=== PATIENT | male | born 1990 | race African-American/Black ===

== ENCOUNTER 2022-09-15 10:36 | Emergency (ER) | payer BC, SELFPAY ==
[2022-09-15 10:42] VITALS: BP 127/70; PULSE 88; RESP 16; TEMP 36.9; O2SAT 100; BMI 25.7
[2022-09-15] MEDS: ONDANSETRON 4 MG ODT PO (10:49)
[2022-09-15 11:53] LABS: Ictotest Urine Negative (Negative)
[2022-09-15 11:54] LABS: Squamous Epithelial Cell Urine 1-5 /HPF (0-5/HPF); WBC Urine 5-10/HPF (0-5/HPF)
[2022-09-15 11:55] LABS: Bacteria Urine None Seen; Culture Indicated Urine Specimen Cultured; RBC Urine None Seen (0-5/HPF)
[2022-09-15 12:59] VITALS: BP 125/89
[2022-09-15 13:03] VITALS: BP 145/82; RESP 20; O2SAT 100
--- NOTE | 2022-09-22 13:59 | ED.NAVMDI ---
HPI - Nausea/Vomiting/Diarrhea <Amna Worley PA-C - Last Filed: 09/22/22 14:06> General Chief complaint: Nausea/Vomiting/Diarrhea Stated complaint: chills/fever/body aches/headache/chest hurts Time Seen by Provider: 09/15/22 12:17 Source: patient Mode of arrival: Ambulatory History of Present Illness HPI Narrative: 31-year-old male with no reported past medical history presents to the ED with 2 days of fever, chills, nausea, vomiting, diarrhea, body aches. 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 Patient is also complaining of a foot rash. Patient denies chest pain, shortness of breath, abdominal pain, dysuria, lightheadedness, dizziness, syncope. Related Data Previous Rx's Medication Instructions Recorded ciprofloxacin HCl 500 mg tablet 500 mg PO Q12H 10 days #20 tabs 09/15/22 ondansetron 4 mg disintegrating 4 mg PO Q8H PRN nausea and 09/15/22 tablet vomiting #20 tabs terbinafine HCl 1 % topical cream 1 applic topical BID 3 weeks #30 09/15/22 grams Allergies Allergy/AdvReac Type Severity Reaction Status Date / Time aspirin Allergy Severe Anaphylaxis Verified 09/15/22 10:46 Penicillins Allergy Severe Anaphylaxis Verified 09/15/22 10:46 Review of Systems <Amna Worley PA-C - Last Filed: 09/22/22 14:06> Review of Systems ROS Unobtainable: All systems reviewed & are unremarkable except as noted in HPI and below Constitutional Constitutional: Reports chills, Reports fatigue, Reports fever(s), Denies frequent falls, Denies lethargy and Denies weakness Eyes Eyes: Denies change in vision, Denies eye discharge, Denies irritation and Denies loss of vision ENT Ears, Nose, Mouth, and Throat: Denies change in voice, Denies dizziness, Denies neck pain, Denies sore throat and Denies throat swelling Cardiovascular Cardiovascular: Denies chest pain, Denies irregular heart rhythm, Denies lightheadedness, Denies palpitations, Denies dyspnea, Denies dyspnea on exertion and Denies orthopnea Respiratory Respiratory: Denies cough, Denies dyspnea, Denies dyspnea on exertion and Denies wheezing Gastrointestinal Gastrointestinal: Denies abdominal pain, Denies change in bowel habits, Reports diarrhea, Reports nausea and Reports vomiting Genitourinary Genitourinary: Denies hematuria, Denies flank pain, Denies urinary incontinence and Denies urinary urgency Musculoskeletal Musculoskeletal: Denies back pain, Denies muscle weakness, Denies neck pain, Denies numbness and Denies tingling Integumentary/Breasts Skin/Breast: Denies pruritus, Denies erythema, Reports rash and Denies wounds Neurologic Neurologic: Denies behavioral changes, Denies confusion, Denies dizziness, Denies frequent falls, Denies loss of vision, Denies numbness, Denies tingling and Denies weakness Psychiatric Psychiatric: Denies anxiety, Denies behavioral changes, Denies confusion, Denies depression, Denies homicidal ideation and Denies suicidal ideation Endocrine Endocrine: Reports fatigue, Denies flushing and Denies palpitations Hematologic/Lymphatic Hematologic/Lymphatic: Denies easy bruising Allergic/Immunologic Allergic/Immunologic: Denies urticaria, Denies throat swelling and Denies wheezing Patient History <Amna Worley PA-C - Last Filed: 09/22/22 14:06> Social History Smoking Status: Current every day smoker Smoking Status: Current every day smoker alcohol intake frequency: 0-2 drinks per day Substance Use Type: marijuana Exam <Amna Worley PA-C - Last Filed: 09/22/22 14:06> Narrative Exam Narrative: Const General:?cooperative, healthy appearing and comfortable [facility] Head:?normal to inspection Ears:?hearing grossly normal bilaterally Nose:?external nose normal Face and sinus:?normal facial exam and sinuses nontender Mouth:?oral mucosae normal Throat:?posterior oropharynx normal Eyes General:?appearance normal, both eyes and all related structures Neck Neck:?normal visual inspection and no lymphadenopathy noted Resp Effort & Inspection:?normal respiratory effort Auscultation:?clear to auscultation bilaterally Cardio Rate:?regular rate Rhythm:?regular rhythm GI Abdomen is soft, nondistended, nontender to palpation. No CVA tenderness. Integumentary Dry, scaly rash on and in between bilateral toes, most consistent with a fungal infection. Neuro General:?patient alert, patient awake and patient oriented x3 Initial Vital Signs Initial Vital Signs: Vital Signs Temperature 98.5 F 09/15/22 10:42 Pulse Rate 88 09/15/22 10:42 Respiratory Rate 16 09/15/22 10:42 Blood Pressure 127/70 09/15/22 10:42 Pulse Oximetry 100 09/15/22 10:42 Oxygen Delivery Method Room Air 09/15/22 10:42 <Remy Garcia DO - Last Filed: 09/22/22 18:10> Initial Vital Signs Initial Vital Signs: Vital Signs Temperature 98.5 F 09/15/22 10:42 Pulse Rate 88 09/15/22 10:42 Respiratory Rate 16 09/15/22 10:42 Blood Pressure 127/70 09/15/22 10:42 Pulse Oximetry 100 09/15/22 10:42 Oxygen Delivery Method Room Air 09/15/22 10:42 Course <Amna Worley PA-C - Last Filed: 09/22/22 14:06> Orders Ordered: Discontinued Medications Ondansetron HCl (Ondansetron 4 Mg Odt) 4 mg PO NOW ONE Stop: 09/15/22 10:48 Last Admin: 09/15/22 10:49 Dose: 4 mg Documented By: TALIA <Remy Garcia DO - Last Filed: 09/22/22 18:10> Orders Ordered: Discontinued Medications Ondansetron HCl (Ondansetron 4 Mg Odt) 4 mg PO NOW ONE Stop: 09/15/22 10:48 Last Admin: 09/15/22 10:49 Dose: 4 mg Documented By: TALIA [facility] - Nausea/Vomiting/Diarrhea <Amna Worley PA-C - Last Filed: 09/22/22 14:06> Lab Data Labs: Lab Results 09/15/22 Range/Units 11:18 Ur Bilirubin Confirm Negative (Negative) Urine RBC None seen (0-5/HPF) Urine WBC 5-10/hpf H (0-5/HPF) Ur Squamous Epith Cells 1-5 /hpf (0-5/HPF) Urine Bacteria None seen (None) Ur Culture Indicated? Specimen cultured Urine Dip Bedside Urine Glucose Negative Bedside Urine Bilirubin ++ 2 Bedside Urine Ketone - Negative Urine Specific [place] 1.025 Bedside Urine Occult Blood - Negative Bedside Urine pH 6.0 Bedside Urine Protein +/- 15 Bedside Urine Urobilinogen - Negative Bedside Urine Nitrite - Negative Bedside Urine Leukocytes + 70 Esterase MDM Narrative Medical decision making narrative: 31-year-old male with no reported past medical history presents to the ED with 2 days of fever, chills, nausea, vomiting, diarrhea, body aches. Concern for gastroenteritis versus UTI versus viral infection versus fungal infection. UA was positive for UTI. Patient's symptoms likely due to pyelonephritis and also possibly gastroenteritis. Foot rash consistent with a fungal infection. Prescribed antibiotics, Zofran, terbinafine. 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 ED return precautions were discussed with patient. Patient verbalized understanding. <Remy Garcia, - Last Filed: 09/22/22 18:10> Lab Data Labs: Lab Results 09/15/22 Range/Units 11:18 Ur Bilirubin Confirm Negative (Negative) Urine RBC None seen (0-5/HPF) Urine WBC 5-10/hpf H (0-5/HPF) Ur Squamous Epith Cells 1-5 /hpf (0-5/HPF) Urine Bacteria None seen (None) Ur Culture Indicated? Specimen cultured Urine Dip Bedside Urine Glucose Negative Bedside Urine Bilirubin ++ 2 Bedside Urine Ketone - Negative Urine Specific [place] 1.025 Bedside Urine Occult Blood - Negative Bedside Urine pH 6.0 Bedside Urine Protein +/- 15 Bedside Urine Urobilinogen - Negative Bedside Urine Nitrite - Negative Bedside Urine Leukocytes + 70 Esterase Discharge Plan Departure Patient Disposition: Home Clinical Impression: Gastroenteritis, Pyelonephritis Instructions: DI for Kidney Infection, DI for Bacterial Gastroenteritis -- Adult Activity Restrictions/Additional Instructions: You were evaluated in the ED for fever, chills, vomiting. You tested positive for a urinary tract infection today for which you are being prescribed antibiotics. You also likely have gastroenteritis, which is food poisoning that can also cause similar symptoms. You may take Zofran for the vomiting. You can take Tylenol, ibuprofen for fevers and body aches. Please complete your full course of antibiotics. 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 Please return to the ED if you are persistently vomiting, your symptoms worsen. Prescriptions: New ciprofloxacin HCl 500 mg tablet 500 mg PO Q12H 10 Days Qty: 20 0RF terbinafine HCl 1 % cream 1 applic topical BID 21 Days Qty: 30 0RF ondansetron 4 mg tablet,disintegrating 4 mg PO Q8H PRN (Reason: nausea and vomiting) Qty: 20 0RF Referrals: Miscellaneous,Doctor, MD [Primary Care Provider] - Stand Alone Forms: Patient Portal/API, Work Release Note <Remy Garcia, - Last Filed: 09/22/22 18:10> Cosign ED Attending Cosignature Attestation: Dr Garcia Co-Sign Statement: I was available for consultation during this patient's emergency department visit. This chart is signed by myself for administrative purposes only. I did not have direct contact with this patient during this visit. They were seen independently by the APC.
== END 2022-09-15 13:00 | disposition home or self-care (01) ==
PROVIDERS: Emergency Medicine; Emergency Provider Student in an Organized Health Care Education/Training Program
DX: K52.9 Noninfective gastroenteritis and colitis, unspecified (principal); N12 Tubulo-interstitial nephritis, not specified as acute or chronic; R21 Rash and other nonspecific skin eruption
CPT/HCPCS: 81003; 81015; 87077; 87086; 99283